=== PATIENT | male | born 1980 | race Caucasian/White ===

== ENCOUNTER 2017-11-18 13:23 | Inpatient (IN) | payer MEDICAID ==
[2017-11-18] MEDS: SOD CHLORIDE 0.9% 1,000 ML IV ×2 (14:10→19:21)
[2017-11-18] MEDS: LORAZEPAM 2 MG INJ IV (14:21)
[2017-11-18] MEDS: KETOROLAC 30 MG INJ IV (14:22)
[2017-11-18 14:31] LABS: ADD MAN DIFF? NO
[2017-11-18 14:34] LABS: BASOPHILS % 0.3 % (0.0-2.0); EOSINOPHILS # 0.1 10^3/ul (0.0-0.5); HEMATOCRIT 44.4 % (42.0-52.0); HEMOGLOBIN 15.8 g/dl (14.0-18.0); LYMPHOCYTES # 1.9 10^3/ul (0.8-2.9); LYMPHOCYTES % 32.4 % (15.0-51.0); MEAN CORPUSCULAR HGB CONC 35.6 g/dl (32.0-37.0); MEAN CORPUSCULAR VOLUME 84.4 fl (82.0-101.0); MEAN PLATELET VOLUME 9.1 fl (7.4-10.4); MONOCYTES % 16.7 % (0.0-11.0); NEUTROPHIL # 2.9 10^3/ul (1.6-7.5); NEUTROPHILS % 49.1 % (39.0-77.0); PLATELET COUNT 301 10^3/UL (140-415); RED BLOOD COUNT 5.26 10^6/ul (4.70-6.10); RED CELL DISTRIBUTION WIDTH 11.8 % (11.5-14.5)
[2017-11-18 14:52] LABS: ALANINE AMINOTRANSFERASE 48 IU/L (13-69); ALBUMIN/GLOBULIN RATIO 1.37; ALKALINE PHOSPHATASE 75 IU/L (42-121); ANION GAP 11 (8-16); ASPARTATE AMINO TRANSFERASE 27 IU/L (15-46); BILIRUBIN,INDIRECT 0.3 mg/dl (0-1.1); BILIRUBIN,TOTAL 0.3 mg/dl (0.2-1.3); BLOOD UREA NITROGEN 16 mg/dl (7-20); CALCIUM 9.4 mg/dl (8.4-10.2); CARBON DIOXIDE 24 mmol/L (21-31); CHLORIDE 112 mmol/L (97-110); CREATINE KINASE 137 IU/L (23-200); CREATININE 0.65 mg/dl (0.61-1.24); GLUCOSE 165 mg/dl (70-220); SODIUM 145 mmol/L (135-144); TOTAL PROTEIN 6.9 g/dl (6.1-8.1)
[2017-11-18] MEDS ORDERED: POTASSIUM CHLORIDE 100 ML IVPB (15:30)
[2017-11-18] MEDS: POTASSIUM CHLORIDE (SR) 20 MEQ TAB PO (16:01)
[2017-11-18 16:04] LABS: MAGNESIUM 2.1 mg/dl (1.7-2.5)
[2017-11-18] MEDS: POTASSIUM CHLORIDE 100 ML IVPB ×2 (16:26→18:29)
[2017-11-18 16:53] LABS: ADD UMIC NO; UR ASCORBIC ACID NEGATIVE (NEGATIVE); UR BILIRUBIN (Dip) NEGATIVE (NEGATIVE); UR BLOOD (Dip) NEGATIVE (NEGATIVE); UR CLARITY CLEAR (CLEAR); UR COLOR YELLOW (YELLOW); UR GLUCOSE (Dip) 2+ mg/dL (NEGATIVE); UR KETONES (Dip) NEGATIVE (NEGATIVE); UR LEUKOCYTE ESTERASE (Dip) NEGATIVE Leu/ul (NEGATIVE); UR NITRITE (Dip) NEGATIVE (NEGATIVE); UR SPECIFIC GRAVITY (Dip) 1.011 (1.003-1.030); UR TOTAL PROTEIN (Dip) NEGATIVE (NEGATIVE); UR UROBILINOGEN (Dip) NEGATIVE (NEGATIVE)
[2017-11-18] MEDS ORDERED: NACL 0.9% 3 ML SYG IV (18:30)
[2017-11-18] MEDS ORDERED: HYDROCODONE/APAP (5/325) TAB PO (18:30)
[2017-11-18] MEDS ORDERED: ONDANSETRON 4 MG INJ IV (18:30)
[2017-11-18] MEDS ORDERED: ZOLPIDEM 5 MG TAB PO (18:30)
[2017-11-18] MEDS ORDERED: DOCUSATE SODIUM 100 MG CAP PO (18:30)
[2017-11-18] MEDS ORDERED: morphine 2 MG INJ IV (18:30)
[2017-11-18 19:07] LABS: LIPASE 109 U/L (23-300)
[2017-11-18 19:09] LABS: LACTIC ACID 2.1 mmol/L (0.5-2.0)
[2017-11-18] MEDS: POTASSIUM CHLORIDE 40 MEQ in SOD CHLORIDE 0.45% 1,000 ML IV (19:13)
[2017-11-18] MEDS: SOD CHLORIDE 0.9% 100 ML (20:53)
[2017-11-18] MEDS: IOHEXOL 300MG/ML 150 ML BTL (20:53)
[2017-11-18 23:10] LABS: LACTIC ACID 2.3 mmol/L (0.5-2.0)
[2017-11-19 03:10] LABS: LACTIC ACID 1.9 mmol/L (0.5-2.0)
[2017-11-19] MEDS: POTASSIUM CHLORIDE 40 MEQ in SOD CHLORIDE 0.45% 1,000 ML IV ×3 (04:42→21:56)
[2017-11-19 08:43] LABS: ADD MAN DIFF? NO
[2017-11-19 08:49] LABS: WHITE BLOOD COUNT 6.7 10^3/ul (4.8-10.8)
[2017-11-19 08:49] LABS: BASOPHILS % 0.4 % (0.0-2.0); EOSINOPHILS % 0.6 % (0.0-7.0); HEMOGLOBIN 13.9 g/dl (14.0-18.0); LYMPHOCYTES # 2.2 10^3/ul (0.8-2.9); MEAN CORPUSCULAR HEMOGLOBIN 29.7 pg (29.0-33.0); MEAN CORPUSCULAR HGB CONC 34.8 g/dl (32.0-37.0); MEAN CORPUSCULAR VOLUME 85.5 fl (82.0-101.0); MEAN PLATELET VOLUME 9.3 fl (7.4-10.4); MONOCYTES % 14.5 % (0.0-11.0); NEUTROPHIL # 3.5 10^3/ul (1.6-7.5); NEUTROPHILS % 52.2 % (39.0-77.0); PLATELET COUNT 283 10^3/UL (140-415); RED BLOOD COUNT 4.68 10^6/ul (4.70-6.10); RED CELL DISTRIBUTION WIDTH 12.4 % (11.5-14.5)
[2017-11-19 09:16] LABS: ANION GAP 10 (8-16); BLOOD UREA NITROGEN 10 mg/dl (7-20); CALCIUM 8.6 mg/dl (8.4-10.2); CARBON DIOXIDE 27 mmol/L (21-31); CHLORIDE 114 mmol/L (97-110); CHOL/HDL RATIO 4.2 RATIO; CHOLESTEROL 131 mg/dl (100-200); CREATININE 0.66 mg/dl (0.61-1.24); GLUCOSE 94 mg/dl (70-220); HDL CHOLESTEROL 31 mg/dl (27-67); LDL CHOLESTEROL,CALCULATED 67 mg/dl; MAGNESIUM 2.1 mg/dl (1.7-2.5); PHOSPHORUS 2.9 mg/dl (2.5-4.9); POTASSIUM 4.3 mmol/L (3.5-5.1); SODIUM 147 mmol/L (135-144); TRIGLYCERIDES 163 mg/dl (0-149)
[2017-11-19 09:25] LABS: FREE THYROXINE INDEX (Calc) 5.28 ug/ml (0.65-3.89); T3 UPTAKE 43.3 % (23.5-40.5); T4 (THYROXINE) 12.2 ug/dl (5.5-11.0)
[2017-11-19 09:38] LABS: THYROID STIMULATING HORMONE < 0.015 MIU/L (0.465-4.680)
[2017-11-19 09:48] LABS: HEMOGLOBIN A1C 5.1 % (0-5.9)
[2017-11-19] MEDS ORDERED: METHIMAZOLE 5 MG TAB PO (13:00)
[2017-11-19] MEDS: PROPRANOLOL 10 MG TAB PO ×3 (14:09→20:40)
[2017-11-19] MEDS: ACETAMINOPHEN 325 MG TAB PO (14:28)
[2017-11-19] MEDS: METHIMAZOLE 5 MG TAB PO (20:41)
[2017-11-20 06:53] LABS: ADD MAN DIFF? NO
[2017-11-20 06:55] LABS: BASOPHILS % 0.4 % (0.0-2.0); EOSINOPHILS # 0.1 10^3/ul (0.0-0.5); EOSINOPHILS % 1.2 % (0.0-7.0); HEMATOCRIT 43.9 % (42.0-52.0); HEMOGLOBIN 15.5 g/dl (14.0-18.0); LYMPHOCYTES # 2.5 10^3/ul (0.8-2.9); LYMPHOCYTES % 34.1 % (15.0-51.0); MEAN CORPUSCULAR HEMOGLOBIN 30.1 pg (29.0-33.0); MEAN CORPUSCULAR HGB CONC 35.3 g/dl (32.0-37.0); MEAN CORPUSCULAR VOLUME 85.2 fl (82.0-101.0); MEAN PLATELET VOLUME 9.2 fl (7.4-10.4); MONOCYTE # 0.9 10^3/ul (0.3-0.9); MONOCYTES % 12.2 % (0.0-11.0); NEUTROPHIL # 3.8 10^3/ul (1.6-7.5); NEUTROPHILS % 51.7 % (39.0-77.0); PLATELET COUNT 298 10^3/UL (140-415); RED BLOOD COUNT 5.15 10^6/ul (4.70-6.10); RED CELL DISTRIBUTION WIDTH 11.8 % (11.5-14.5)
[2017-11-20 06:55] LABS: WHITE BLOOD COUNT 7.3 10^3/ul (4.8-10.8)
[2017-11-20 07:22] LABS: ANION GAP 16 (8-16); BLOOD UREA NITROGEN 11 mg/dl (7-20); CALCIUM 8.9 mg/dl (8.4-10.2); CARBON DIOXIDE 25 mmol/L (21-31); CHLORIDE 108 mmol/L (97-110); CREATININE 0.79 mg/dl (0.61-1.24); GLUCOSE 106 mg/dl (70-220); POTASSIUM 4.7 mmol/L (3.5-5.1); SODIUM 144 mmol/L (135-144)
[2017-11-20] MEDS: PROPRANOLOL 10 MG TAB PO (08:30)
[2017-11-20] MEDS: METHIMAZOLE 5 MG TAB PO (08:30)
[2017-11-20] MEDS: POTASSIUM CHLORIDE 40 MEQ in SOD CHLORIDE 0.45% 1,000 ML IV (11:18)
[2017-11-20 20:23] LABS: ALDOSTERONE <1 ng/dL
[2017-11-22 21:46] LABS: RENIN, PLASMA 0.39 ng/mL/h (0.25-5.82)
[2017-11-23 11:56] LABS: THYROID MICROSOMAL ANTIBODY 87 IU/mL (<9)
== END 2017-11-20 12:06 | disposition home or self-care (01) | DRG 645 ==
LOC: FTE 13:23 → MS4 15:48
DX: E05.00 Thyrotoxicosis with diffuse goiter without thyrotoxic crisis or storm (principal); F10.10 Alcohol abuse, uncomplicated; G72.3 Periodic paralysis
CPT/HCPCS: 73520; 74177; 80048; 80053; 80061; 81003; 82088; 82533; 82550; 83036; 83605; 83690; 83735; 84100; 84244; 84436; 84443; 84479; 85025; 86376; 93005

== ENCOUNTER 2018-01-26 09:29 | Inpatient (IN) | payer MEDICAID ==
[2018-01-26 10:01] LABS: ADD MAN DIFF? NO
[2018-01-26 10:04] LABS: WHITE BLOOD COUNT 5.8 10^3/ul (4.8-10.8)
[2018-01-26 10:04] LABS: BASOPHILS % 0.2 % (0.0-2.0); EOSINOPHILS % 0.3 % (0.0-7.0); HEMATOCRIT 45.7 % (42.0-52.0); HEMOGLOBIN 15.8 g/dl (14.0-18.0); LYMPHOCYTES # 1.2 10^3/ul (0.8-2.9); LYMPHOCYTES % 21.5 % (15.0-51.0); MEAN CORPUSCULAR HEMOGLOBIN 28.5 pg (29.0-33.0); MEAN CORPUSCULAR HGB CONC 34.6 g/dl (32.0-37.0); MEAN CORPUSCULAR VOLUME 82.3 fl (82.0-101.0); MEAN PLATELET VOLUME 8.8 fl (7.4-10.4); MONOCYTE # 0.5 10^3/ul (0.3-0.9); MONOCYTES % 8.5 % (0.0-11.0); PLATELET COUNT 271 10^3/UL (140-415); RED BLOOD COUNT 5.55 10^6/ul (4.70-6.10); RED CELL DISTRIBUTION WIDTH 12.7 % (11.5-14.5)
[2018-01-26] MEDS: ONDANSETRON 4 MG INJ IV (10:27)
[2018-01-26 10:29] LABS: ANION GAP 12 (8-16); BLOOD UREA NITROGEN 18 mg/dl (7-20); CARBON DIOXIDE 21 mmol/L (21-31); CHLORIDE 113 mmol/L (97-110); CREATININE 0.58 mg/dl (0.61-1.24); GLUCOSE 159 mg/dl (70-220); SODIUM 144 mmol/L (135-144)
[2018-01-26 10:31] LABS: POTASSIUM 1.7 mmol/L (3.5-5.1)
[2018-01-26] MEDS: POTASSIUM CHLORIDE 100 ML IVPB ×4 (10:37→18:33)
[2018-01-26 11:06] LABS: THYROID STIMULATING HORMONE < 0.015 MIU/L (0.465-4.680)
[2018-01-26] MEDS ORDERED: SOD CHLORIDE 0.45% 1,000 ML IV (14:35)
[2018-01-26] MEDS ORDERED: LORAZEPAM 2 MG INJ IV (15:00)
[2018-01-26] MEDS ORDERED: ACETAMINOPHEN 325 MG TAB PO (15:00)
[2018-01-26] MEDS ORDERED: hydrALAzine 20 MG INJ IV (15:00)
[2018-01-26] MEDS ORDERED: ONDANSETRON 4 MG INJ IV (15:00)
[2018-01-26] MEDS ORDERED: NA PHOSPHATE/BIPHOS 133 ML ENEMA PR (15:00)
[2018-01-26] MEDS ORDERED: NITROGLYCERIN (SL) 0.4 MG TAB SL (15:00)
[2018-01-26] MEDS ORDERED: HYDROCODONE/APAP (5/325) TAB PO (15:00)
[2018-01-26] MEDS ORDERED: ALBUTEROL/IPRATROPIUM (NEB) 3 ML AMP HHN (15:00)
[2018-01-26] MEDS ORDERED: DOCUSATE SODIUM 100 MG CAP PO (15:00)
[2018-01-26] MEDS ORDERED: MAGNESIUM HYDROXIDE 30ML CUP PO (15:00)
[2018-01-26] MEDS ORDERED: morphine 2 MG INJ IV (15:00)
[2018-01-26] MEDS ORDERED: NACL 0.9% 3 ML SYG IV (15:00)
[2018-01-26 15:56] LABS: ANION GAP 11 (8-16); BLOOD UREA NITROGEN 19 mg/dl (7-20); CALCIUM 8.8 mg/dl (8.4-10.2); CARBON DIOXIDE 23 mmol/L (21-31); CHLORIDE 113 mmol/L (97-110); CREATININE 0.59 mg/dl (0.61-1.24); GLUCOSE 118 mg/dl (70-220); SODIUM 145 mmol/L (135-144)
[2018-01-26 15:58] LABS: ETHANOL < 10.0 mg/dl
[2018-01-26 16:13] LABS: FREE T4 (FREE THYROXINE) 3.06 ng/dl (0.79-2.35)
[2018-01-26] MEDS: METHIMAZOLE 5 MG TAB PO ×2 (16:14→21:14)
[2018-01-26] MEDS: 1/2 NS + KCL 20 MEQ 1,000 ML IV (16:14)
[2018-01-26] MEDS: SPIRONOLACTONE 50 MG TAB PO (21:12)
[2018-01-26] MEDS: PROPYLTHIOURACIL 50 MG TAB PO (21:14)
[2018-01-26] MEDS: HEPARIN 5,000 UNIT/0.5 ML VIAL SC (21:17)
[2018-01-27] MEDS: PANTOPRAZOLE (EC) 40 MG TAB PO (05:39)
[2018-01-27] MEDS: 1/2 NS + KCL 20 MEQ 1,000 ML IV (05:39)
[2018-01-27 06:51] LABS: ADD MAN DIFF? NO
[2018-01-27 07:00] LABS: BASOPHILS % 0.4 % (0.0-2.0); EOSINOPHILS % 0.8 % (0.0-7.0); HEMATOCRIT 41.6 % (42.0-52.0); HEMOGLOBIN 14.4 g/dl (14.0-18.0); LYMPHOCYTES # 1.9 10^3/ul (0.8-2.9); MEAN CORPUSCULAR HGB CONC 34.6 g/dl (32.0-37.0); MEAN CORPUSCULAR VOLUME 83.7 fl (82.0-101.0); MEAN PLATELET VOLUME 9.2 fl (7.4-10.4); MONOCYTE # 0.9 10^3/ul (0.3-0.9); MONOCYTES % 17.4 % (0.0-11.0); NEUTROPHIL # 2.2 10^3/ul (1.6-7.5); NEUTROPHILS % 43.4 % (39.0-77.0); PLATELET COUNT 283 10^3/UL (140-415); RED BLOOD COUNT 4.97 10^6/ul (4.70-6.10); RED CELL DISTRIBUTION WIDTH 13.2 % (11.5-14.5)
[2018-01-27 07:25] LABS: ANION GAP 13 (8-16); BLOOD UREA NITROGEN 18 mg/dl (7-20); CALCIUM 8.9 mg/dl (8.4-10.2); CARBON DIOXIDE 24 mmol/L (21-31); CHLORIDE 111 mmol/L (97-110); CHOL/HDL RATIO 3.9 RATIO; CHOLESTEROL 127 mg/dl (100-200); CREATININE 0.73 mg/dl (0.61-1.24); GLUCOSE 92 mg/dl (70-220); HDL CHOLESTEROL 32 mg/dl (27-67); LDL CHOLESTEROL,CALCULATED 67 mg/dl; MAGNESIUM 2.1 mg/dl (1.7-2.5); PHOSPHORUS 4.5 mg/dl (2.5-4.9); POTASSIUM 4.3 mmol/L (3.5-5.1); SODIUM 144 mmol/L (135-144); TRIGLYCERIDES 138 mg/dl (0-149)
[2018-01-27 07:46] LABS: HEMOGLOBIN A1C 5.7 % (0-5.9)
[2018-01-27] MEDS: METHIMAZOLE 5 MG TAB PO ×2 (08:23→20:40)
[2018-01-27] MEDS: HEPARIN 5,000 UNIT/0.5 ML VIAL SC ×2 (08:25→20:45)
[2018-01-27 10:05] LABS: THYROID STIMULATING HORMONE < 0.015 MIU/L (0.465-4.680)
[2018-01-27] MEDS ORDERED: morphine LIQ (10 MG/5 ML) CUP PO (15:00)
[2018-01-28] MEDS: PANTOPRAZOLE (EC) 40 MG TAB PO (05:42)
[2018-01-28 06:33] LABS: ADD MAN DIFF? NO
[2018-01-28 06:39] LABS: WHITE BLOOD COUNT 4.7 10^3/ul (4.8-10.8)
[2018-01-28 06:39] LABS: BASOPHILS % 0.4 % (0.0-2.0); EOSINOPHILS # 0.1 10^3/ul (0.0-0.5); EOSINOPHILS % 2.1 % (0.0-7.0); HEMATOCRIT 46.2 % (42.0-52.0); HEMOGLOBIN 15.8 g/dl (14.0-18.0); LYMPHOCYTES # 1.7 10^3/ul (0.8-2.9); LYMPHOCYTES % 35.7 % (15.0-51.0); MEAN CORPUSCULAR HEMOGLOBIN 28.5 pg (29.0-33.0); MEAN CORPUSCULAR HGB CONC 34.2 g/dl (32.0-37.0); MEAN CORPUSCULAR VOLUME 83.2 fl (82.0-101.0); MEAN PLATELET VOLUME 9.3 fl (7.4-10.4); MONOCYTE # 0.7 10^3/ul (0.3-0.9); MONOCYTES % 14.3 % (0.0-11.0); NEUTROPHIL # 2.2 10^3/ul (1.6-7.5); NEUTROPHILS % 47.3 % (39.0-77.0); PLATELET COUNT 274 10^3/UL (140-415); RED BLOOD COUNT 5.55 10^6/ul (4.70-6.10); RED CELL DISTRIBUTION WIDTH 12.6 % (11.5-14.5)
[2018-01-28 07:04] LABS: ANION GAP 14 (8-16); BLOOD UREA NITROGEN 19 mg/dl (7-20); CALCIUM 9.4 mg/dl (8.4-10.2); CARBON DIOXIDE 24 mmol/L (21-31); CHLORIDE 108 mmol/L (97-110); CREATININE 0.74 mg/dl (0.61-1.24); GLUCOSE 104 mg/dl (70-220); POTASSIUM 4.4 mmol/L (3.5-5.1); SODIUM 142 mmol/L (135-144)
[2018-01-28] MEDS: METHIMAZOLE 5 MG TAB PO (08:09)
[2018-01-28] MEDS: HEPARIN 5,000 UNIT/0.5 ML VIAL SC (08:18)
== END 2018-01-28 15:00 | disposition home or self-care (01) | DRG 645 ==
LOC: E/R 09:29 → MS4 11:40
DX: E05.00 Thyrotoxicosis with diffuse goiter without thyrotoxic crisis or storm (principal); G72.3 Periodic paralysis; I10 Essential (primary) hypertension
CPT/HCPCS: 36415; 80048; 80061; 80307; 83036; 83735; 84100; 84439; 84443; 85025; 93005; 96374; 99285-25

== ENCOUNTER 2018-02-02 02:40 | Emergency (ER) | payer MEDICAID ==
[2018-02-02] MEDS: DIPHENHYDRAMINE 50 MG INJ IM (04:36)
== END 2018-02-02 04:55 | disposition home or self-care (01) ==
LOC: FTE 02:40
DX: L50.9 Urticaria, unspecified (principal); E03.9 Hypothyroidism, unspecified
CPT/HCPCS: 96372; 99284-25

== ENCOUNTER 2019-03-05 13:53 | Emergency (ER) | payer MEDICAID, OTHER ==
[2019-03-05] MEDS: ONDANSETRON 4 MG INJ IV (15:27)
[2019-03-05] MEDS: KETOROLAC 30 MG INJ IV (15:27)
[2019-03-05] MEDS: LIDOCAINE/MYLANTA 40 ML BTL PO (15:28)
[2019-03-05] MEDS: DIPHENHYDRAMINE 50 MG INJ IV (15:28)
[2019-03-05] MEDS: SOD CHLORIDE 0.9% 1,000 ML IV (15:28)
[2019-03-05 15:36] LABS: ADD MAN DIFF? NO
[2019-03-05 15:37] LABS: BASOPHILS % 0.2 % (0.0-2.0); EOSINOPHILS % 0.2 % (0.0-7.0); HEMATOCRIT 44.1 % (42.0-52.0); HEMOGLOBIN 15.4 g/dl (14.0-18.0); LYMPHOCYTES % 16.3 % (15.0-51.0); MEAN CORPUSCULAR HEMOGLOBIN 30.4 pg (29.0-33.0); MEAN CORPUSCULAR HGB CONC 34.9 g/dl (32.0-37.0); MEAN PLATELET VOLUME 8.9 fl (7.4-10.4); MONOCYTE # 0.6 10^3/ul (0.3-0.9); NEUTROPHIL # 4.4 10^3/ul (1.6-7.5); NEUTROPHILS % 72.6 % (39.0-77.0); PLATELET COUNT 230 10^3/UL (140-415); RED BLOOD COUNT 5.07 10^6/ul (4.70-6.10); RED CELL DISTRIBUTION WIDTH 12.4 % (11.5-14.5)
[2019-03-05 15:37] LABS: WHITE BLOOD COUNT 6.1 10^3/ul (4.8-10.8)
[2019-03-05 15:55] LABS: ALANINE AMINOTRANSFERASE 49 IU/L (13-69); ALKALINE PHOSPHATASE 105 IU/L (42-121); ANION GAP 10 (5-13); ASPARTATE AMINO TRANSFERASE 30 IU/L (15-46); BLOOD UREA NITROGEN 17 mg/dl (7-20); CALCIUM 8.9 mg/dl (8.4-10.2); CARBON DIOXIDE 26 mmol/L (21-31); CHLORIDE 103 mmol/L (97-110); CREATININE 0.92 mg/dl (0.61-1.24); Estimated GFR > 60 mL/min (>60); GLUCOSE 168 mg/dl (70-220); LIPASE 100 U/L (23-300); POTASSIUM 4.1 mmol/L (3.5-5.1); SODIUM 139 mmol/L (135-144)
[2019-03-05 15:56] LABS: ALBUMIN 4.2 g/dl (3.3-4.9); ALBUMIN/GLOBULIN RATIO 1.44; BILIRUBIN,INDIRECT 0.9 mg/dl (0-1.1); BILIRUBIN,TOTAL 0.9 mg/dl (0.2-1.3); TOTAL PROTEIN 7.1 g/dl (6.1-8.1)
[2019-03-05 15:57] LABS: INR 0.94; PROTIME 12.7 Sec (11.9-14.9)
[2019-03-05 15:58] LABS: PARTIAL THROMBOPLASTIN TIME 31.5 Sec (23.0-35.0)
== END 2019-03-05 17:17 | disposition home or self-care (01) ==
LOC: FTE 17:17
DX: R51 Headache (principal); E03.9 Hypothyroidism, unspecified; R10.13 Epigastric pain
CPT/HCPCS: 36415; 80053; 83690; 85025; 85610; 85730; 96361; 96374; 96375; 99284-25